=== PATIENT | male | born 1950 | race Caucasian/White ===

== ENCOUNTER 2018-11-12 06:43 | Emergency (ER) | payer MEDICARE ==
[~2018-11-12] VITALS: Ht 182.9 cm; Wt 87.5 kg
[~2018-11-12 06:43] MED LIST: AMIO200T42 PO; DIGO125T PO; DILT30TA33 PO; FURO40TA6 PO; LISI5TAB7 PO; METO25TA35 PO; OXYC5TAB3 PO; POTA20TA14 PO; WARF2TAB PO; WARF3TAB PO
[2018-11-12 06:46] VITALS: BP 118/66
[2018-11-12 07:24] LABS: BASOPHILS # (AUTO) 0.06 x10^3/uL (0-0.1); BASOPHILS % (AUTO) 1 % (0-1); EOSINOPHILS # (AUTO) 0.42 x10^3/uL (0-0.4); EOSINOPHILS % (AUTO) 6 % (1-7); LYMPHOCYTES # (AUTO) 1.02 x10^3/uL (1-3.4); LYMPHOCYTES % (AUTO) 15 % (22-44); MD NO; MEAN CORPUSCULAR HEMOGLOBIN 33.5 pg (27.5-34.5); MEAN CORPUSCULAR HGB CONC 33.2 g/dL (33.2-36.2); MEAN CORPUSCULAR VOLUME 100.9 fL (81-97); MEAN PLATELET VOLUME 7.9 fL (7.4-10.4); MONOCYTES # (AUTO) 0.66 x10^3/uL (0.2-0.8); MONOCYTES % (AUTO) 10 % (2-9); NEUTROPHILS # (AUTO) 4.46 x10^3/uL (1.8-6.8); NEUTROPHILS % (AUTO) 67 % (42-75); PLATELET COUNT 208 x10^3/uL (130-400); RED BLOOD COUNT 4.54 x10^6/uL (4.38-5.82); RED CELL DISTRIBUTION WIDTH 14.9 % (9.4-14.8)
[2018-11-12 07:34] LABS: INTERNATIONAL NORMALIZED RATIO 2.74 (0.93-1.1); PROTHROMBIN TIME 27.7 Seconds (9.6-11.5)
[2018-11-12 07:35] LABS: ALANINE AMINOTRANSFERASE 22 U/L (12-78); ALBUMIN 3.7 g/dL (3.4-5.0); ANION GAP 5 mmol/L (5-15); CALCIUM 8.8 mg/dL (8.5-10.1); CHLORIDE 102 mmol/L (98-107); CREATININE 1.14 mg/dL (0.7-1.3)
[2018-11-12 07:49] LABS: ALKALINE PHOSPHATASE 83 U/L (45-117); BILIRUBIN,TOTAL 0.7 mg/dL (0.2-1.0); TOTAL PROTEIN 7.1 g/dL (6.4-8.2)
== END 2018-11-12 08:58 | disposition home or self-care (01) ==
LOC: ED 08:53
DX: I48.2 Chronic atrial fibrillation (principal); R25.1 Tremor, unspecified; I50.9 Heart failure, unspecified
CPT/HCPCS: 36415; 70450; 80053; 80162; 85025; 85610; 85730; 93005; 99284

== ENCOUNTER 2019-08-11 13:16 | Inpatient (IN) | payer MEDICARE ==
[~2019-08-11] VITALS: Ht 182.9 cm; Wt 93.0 kg
[~2019-08-11 13:16] MED LIST changes: +ASPIRIN; +COREG; +DEXA4TAB66 PO; -DIGO125T PO; +DIGO125T85 PO; +DILT180C53 PO; +FOLI-17 PO; +LEVE500T53 PO; +METO50TA82 PO; +THIA100T67 PO
--- NOTE | 2019-08-11 13:39 | NUR ---
PT BIB [facility]. GF CALLED 911 WHEN PT FELL TO GROUND AND BEGAN SHAKING AND FOAMING AT THE MOUTH. PT DENIES HX OF SEIZURES. PT HAD BITTEN TONGUE. PT ADMITS TO HX OF ETOH ABUSE. EKG COMPLETED. 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 SZ PRECAUTIONS IN PLACE.
[2019-08-11] MEDS ORDERED: LORazepam 2 MG/ML, 1ML ONE ×2 (13:44→16:11)
[2019-08-11] MEDS ORDERED: SODIUM CHLORIDE 0.9% 1,000ML IVBOLUS ONE (14:00)
[2019-08-11] MEDS ORDERED: THIAMINE 100 MG in SODIUM CHLORIDE 0.9% 50 ML IVPB ONE (14:00)
[2019-08-11] MEDS ORDERED: SODIUM CHLORIDE FLUSH 10ML SYR IVF ONE (14:00)
[2019-08-11] MEDS ORDERED: LORazepam 2 MG/ML, 1ML IVPush PRN ×2 (14:00→16:00)
[2019-08-11 14:14] LABS: BASOPHILS # (AUTO) 0.05 x10^3/uL (0-0.1); BASOPHILS % (AUTO) 1 % (0-1); EOSINOPHILS # (AUTO) 0.02 x10^3/uL (0-0.4); EOSINOPHILS % (AUTO) 0 % (1-7); LYMPHOCYTES # (AUTO) 0.64 x10^3/uL (1-3.4); LYMPHOCYTES % (AUTO) 8 % (22-44); MD NO; MEAN CORPUSCULAR HEMOGLOBIN 32.9 pg (27.5-34.5); MEAN CORPUSCULAR HGB CONC 33.3 g/dL (33.2-36.2); MEAN CORPUSCULAR VOLUME 98.6 fL (81-97); MEAN PLATELET VOLUME 7.4 fL (7.4-10.4); MONOCYTES # (AUTO) 0.46 x10^3/uL (0.2-0.8); MONOCYTES % (AUTO) 6 % (2-9); NEUTROPHILS # (AUTO) 6.99 x10^3/uL (1.8-6.8); NEUTROPHILS % (AUTO) 86 % (42-75); PLATELET COUNT 229 x10^3/uL (130-400); RED CELL DISTRIBUTION WIDTH 15.1 % (9.4-14.8)
[2019-08-11 14:24] LABS: PROTHROMBIN TIME 10.6 Seconds (9.6-11.5)
[2019-08-11 14:27] LABS: ALANINE AMINOTRANSFERASE 15 U/L (12-78); ALBUMIN 3.1 g/dL (3.4-5.0); ANION GAP 10 mmol/L (5-15); CALCIUM 7.9 mg/dL (8.5-10.1); CHLORIDE 107 mmol/L (98-107)
--- NOTE | 2019-08-11 14:27 | NUR ---
PT IN CT AT THIS TIME
[2019-08-11 14:30] LABS: ALKALINE PHOSPHATASE 99 U/L (45-117); CREATININE 0.97 mg/dL (0.7-1.3); TOTAL PROTEIN 6.3 g/dL (6.4-8.2)
--- NOTE | 2019-08-11 14:33 | NUR ---
PT BACK FROM CT. RESTING IN [facility]. NAD. VSS.
--- NOTE | 2019-08-11 15:05 | NUR ---
PT RESTING IN [facility]. MEDICATED PER JUL. NAD
[2019-08-11] MEDS ORDERED: SODIUM CHLORIDE FLUSH 10ML SYR IVF PRN (15:30)
[2019-08-11] MEDS ORDERED: LORazepam 1MG TABLET PO PRN (16:00)
[2019-08-11] MEDS ORDERED: ONDANSETRON 2MG/ML, 2ML IVPush PRN (16:00)
[2019-08-11] MEDS ORDERED: morphine SULFATE 10 MG/ML, 1ML IVPush PRN (16:00)
[2019-08-11] MEDS ORDERED: LORazepam 2 MG/ML, 1ML IV PRN ×5 (16:00)
[2019-08-11] MEDS ORDERED: hydrALAzine 20 MG/ML, 1ML IVPush PRN (16:00)
[2019-08-11] MEDS ORDERED: ACETAMINOPHEN 325 MG TABLET PO PRN (16:00)
[2019-08-11] MEDS ORDERED: GABAPENTIN 300 MG CAPSULE PO PRN (16:00)
[2019-08-11] MEDS ORDERED: ONDANSETRON ODT 4 MG PO PRN (16:00)
[2019-08-11] MEDS ORDERED: CHLORDIAZEPOXIDE 25 MG CAPSULE PO SCH (16:00)
[2019-08-11] MEDS ORDERED: BACLOFEN 10 MG TABLET PO PRN (16:00)
--- NOTE | 2019-08-11 16:20 | NUR ---
PT GIVEN 1MG ATIVAN PRN, PER MAR
[2019-08-11] MEDS: THIAMINE 100MG TABLET PO SCH (16:53)
[2019-08-11 17:08] VITALS: BP 152/109
[2019-08-11] MEDS ORDERED: CHLORDIAZEPOXIDE 25 MG CAPSULE ONE (17:34)
[2019-08-11] MEDS: CHLORDIAZEPOXIDE 25 MG CAPSULE PO SCH (17:37)
[2019-08-11] MEDS: LORazepam 0.5MG TABLET PO PRN ×2 (18:24→20:48)
[2019-08-11 18:57] VITALS: BP 159/80
[2019-08-12] MEDS ORDERED: CHLORDIAZEPOXIDE 25 MG CAPSULE PO SCH
[2019-08-12 00:37] VITALS: BP 129/79
[2019-08-12] MEDS: LORazepam 0.5MG TABLET PO PRN (01:07)
[2019-08-12] MEDS: CHLORDIAZEPOXIDE 25 MG CAPSULE PO SCH ×3 (02:21→18:03)
[2019-08-12 06:14] LABS: BASOPHILS # (AUTO) 0.06 x10^3/uL (0-0.1); BASOPHILS % (AUTO) 1 % (0-1); EOSINOPHILS # (AUTO) 0.08 x10^3/uL (0-0.4); EOSINOPHILS % (AUTO) 1 % (1-7); LYMPHOCYTES # (AUTO) 1.05 x10^3/uL (1-3.4); LYMPHOCYTES % (AUTO) 13 % (22-44); MD NO; MEAN CORPUSCULAR HEMOGLOBIN 32.7 pg (27.5-34.5); MEAN CORPUSCULAR HGB CONC 33.3 g/dL (33.2-36.2); MEAN CORPUSCULAR VOLUME 98.2 fL (81-97); MEAN PLATELET VOLUME 8.1 fL (7.4-10.4); MONOCYTES # (AUTO) 0.53 x10^3/uL (0.2-0.8); MONOCYTES % (AUTO) 7 % (2-9); NEUTROPHILS # (AUTO) 6.36 x10^3/uL (1.8-6.8); NEUTROPHILS % (AUTO) 79 % (42-75); PLATELET COUNT 232 x10^3/uL (130-400); RED BLOOD COUNT 4.59 x10^6/uL (4.38-5.82); RED CELL DISTRIBUTION WIDTH 15.4 % (9.4-14.8)
[2019-08-12 06:24] LABS: ALBUMIN 3.4 g/dL (3.4-5.0); ANION GAP 9 mmol/L (5-15); CALCIUM 8.7 mg/dL (8.5-10.1); CHLORIDE 106 mmol/L (98-107)
[2019-08-12 06:29] LABS: ALANINE AMINOTRANSFERASE 15 U/L (12-78); ALKALINE PHOSPHATASE 104 U/L (45-117); BILIRUBIN,TOTAL 1.5 mg/dL (0.2-1.0); CREATININE 0.96 mg/dL (0.7-1.3); TOTAL PROTEIN 6.7 g/dL (6.4-8.2)
[2019-08-12 07:04] VITALS: BP 144/86
[2019-08-12] MEDS: DILTIAZEM CD 180 MG CAP.ER.24H PO SCH (08:11)
[2019-08-12] MEDS: DIGOXIN 0.125 MG TABLET PO SCH (08:11)
[2019-08-12] MEDS: THIAMINE 100MG TABLET PO SCH (08:12)
[2019-08-12] MEDS: LORazepam 1MG TABLET PO PRN ×3 (08:23→20:09)
[2019-08-12] MEDS: ENOXAPARIN 30 MG/0.3 ML SQ SCH (10:22)
[2019-08-12 12:46] VITALS: BP 144/84
[2019-08-12 19:12] VITALS: BP 141/89
[2019-08-13] MEDS: LORazepam 1MG TABLET PO PRN ×2 (00:18→06:25)
[2019-08-13 01:33] VITALS: BP 147/81
[2019-08-13] MEDS: CHLORDIAZEPOXIDE 25 MG CAPSULE PO SCH ×3 (03:04→18:17)
[2019-08-13] MEDS ORDERED: THIAMINE 100 MG in DEXTROSE 5% 50 ML IVPB SCH (09:00)
[2019-08-13 09:11] VITALS: BP 115/60
[2019-08-13] MEDS: THIAMINE 100MG TABLET PO SCH (09:22)
[2019-08-13] MEDS: DIGOXIN 0.125 MG TABLET PO SCH (09:22)
[2019-08-13] MEDS: DILTIAZEM CD 180 MG CAP.ER.24H PO SCH (09:22)
[2019-08-13] MEDS: ENOXAPARIN 30 MG/0.3 ML SQ SCH (09:23)
[2019-08-13 12:00] VITALS: BP 126/80
[2019-08-13 18:20] VITALS: BP 116/76
[2019-08-14] MEDS: CHLORDIAZEPOXIDE 25 MG CAPSULE PO SCH (02:28)
[2019-08-14 02:33] VITALS: BP 131/89
[2019-08-14 06:06] LABS: BASOPHILS # (AUTO) 0.04 x10^3/uL (0-0.1); BASOPHILS % (AUTO) 1 % (0-1); EOSINOPHILS # (AUTO) 0.22 x10^3/uL (0-0.4); EOSINOPHILS % (AUTO) 3 % (1-7); LYMPHOCYTES % (AUTO) 15 % (22-44); MD NO; MEAN CORPUSCULAR HEMOGLOBIN 32.8 pg (27.5-34.5); MEAN CORPUSCULAR HGB CONC 33.4 g/dL (33.2-36.2); MEAN PLATELET VOLUME 8.4 fL (7.4-10.4); MONOCYTES # (AUTO) 0.51 x10^3/uL (0.2-0.8); MONOCYTES % (AUTO) 8 % (2-9); NEUTROPHILS # (AUTO) 4.99 x10^3/uL (1.8-6.8); NEUTROPHILS % (AUTO) 74 % (42-75); PLATELET COUNT 189 x10^3/uL (130-400); RED BLOOD COUNT 4.35 x10^6/uL (4.38-5.82)
[2019-08-14 06:24] LABS: ANION GAP 8 mmol/L (5-15); CALCIUM 8.4 mg/dL (8.5-10.1); CHLORIDE 105 mmol/L (98-107); CREATININE 1.03 mg/dL (0.7-1.3)
[2019-08-14 06:25] VITALS: BP 108/71
[2019-08-14] MEDS: DIGOXIN 0.125 MG TABLET PO SCH (09:48)
[2019-08-14] MEDS: DILTIAZEM CD 180 MG CAP.ER.24H PO SCH (09:48)
[2019-08-14] MEDS: THIAMINE 100MG TABLET PO SCH (09:49)
[2019-08-14] MEDS ORDERED: THIA100T67 PO (11:17)
[2019-08-14] MEDS ORDERED: FOLI-17 PO (11:17)
== END 2019-08-14 14:24 | DRG 101 ==
LOC: ED 13:34 → SUATTDRO 15:25 → EDIP 15:27 → 4WST 16:50
PROVIDERS: ADMIT Hospitalist; ATTEND Hospitalist
DX: R56.9 Unspecified convulsions (principal); F10.239 Alcohol dependence with withdrawal, unspecified; D68.69 Other thrombophilia; I48.20 Chronic atrial fibrillation, unspecified; I50.32 Chronic diastolic (congestive) heart failure; J98.11 Atelectasis; E11.22 Type 2 diabetes mellitus with diabetic chronic kidney disease; I34.0 Nonrheumatic mitral (valve) insufficiency; N18.9 Chronic kidney disease, unspecified; Z86.73 Personal history of transient ischemic attack (TIA), and cerebral infarction without residual deficits; Z86.74 Personal history of sudden cardiac arrest; W18.39XA Other fall on same level, initial encounter; Y93.89 Activity, other specified; Y92.89 Other specified places as the place of occurrence of the external cause; Y99.8 Other external cause status
CPT/HCPCS: 36415; 70450; 71045; 80048; 80053; 80162; 80307; 83735; 84100; 85025; 85610; 93005; 96361; 96374; 96375; 96376; G0378; J1650; J3411; J2060; J7030

== ENCOUNTER 2019-12-15 09:59 | Emergency (ER) | payer MEDICARE ==
[~2019-12-15] VITALS: Ht 180.3 cm; Wt 90.0 kg
--- NOTE | 2019-12-15 10:14 | NUR ---
PT WAS ATTEMPTING TO STAND AFTER USING TOILET, FELL ONTO LEFT SIDE, LANDED ON TILE FLOOR. C/O PAIN TO LT SHOULDER, LT HIP. WAS AMBULATORY AFTER FALL, PER EMS. PT AMBULATORY IN ED W/ OWN WALKER. SKIN INTACT ON LT SHOULDER, UE, HIP, LE; NO BRUISING NOTED. SLIGHT ABRASION TO LT SCAPULA AREA
[2019-12-15] MEDS ORDERED: HYDR25CA94 PO (10:20)
[2019-12-15] MEDS ORDERED: DILT60TA30 PO (10:20)
--- NOTE | 2019-12-15 10:22 | NUR ---
PT POOR HISTORIAN RE: MEDICATIONS.
[2019-12-15 10:42] VITALS: BP 119/65
--- NOTE | 2019-12-15 10:45 | NUR ---
PT BAREFOOT; REFUSED OFFER OF SOCKS
== END 2019-12-15 11:12 | disposition home or self-care (01) ==
LOC: ED 10:22
DX: S40.012A Contusion of left shoulder, initial encounter (principal); S70.02XA Contusion of left hip, initial encounter; E11.9 Type 2 diabetes mellitus without complications; I48.91 Unspecified atrial fibrillation; I11.0 Hypertensive heart disease with heart failure; I50.9 Heart failure, unspecified; W07.XXXA Fall from chair, initial encounter; Y93.89 Activity, other specified; Y92.009 Unspecified place in unspecified non-institutional (private) residence as the place of occurrence of the external cause; Y99.8 Other external cause status
CPT/HCPCS: 99283

== ENCOUNTER → 2020-04-22 | Outpatient (CLI) | payer MEDICARE ==
[~2020-04-22] MED LIST changes: +DILT60TA30 PO; +HYDR25CA94 PO
== END | disposition home or self-care (01) ==
LOC: CVU 14:45
PROVIDERS: ATTEND Internal Medicine Cardiovascular Disease
DX: I08.8 Other rheumatic multiple valve diseases (principal); I25.2 Old myocardial infarction; I48.91 Unspecified atrial fibrillation; I42.8 Other cardiomyopathies
CPT/HCPCS: 93306